=== PATIENT | male | born 1945 | race African-American/Black ===

== ENCOUNTER 2023-08-05 02:36 | Emergency (ER) | payer OTHER, MEDICAID ==
[~2023-08-05] VITALS: Ht 188 cm; Wt 78.0 kg
[~2023-08-05 02:36] MED LIST: ASPI-1073 PO; CLON0.3T PO
[2023-08-05] MEDS ORDERED: ONDANSETRON HCL 4MG/2ML INJ IV STA (03:01)
[2023-08-05] MEDS ORDERED: PIPERACILLIN/TAZO 3.375G/50ML 50 ML IV ONE (03:15)
[2023-08-05] MEDS ORDERED: VANCOMYCIN 1G PREMIX 200 ML IV ONE (03:15)
[2023-08-05] MEDS ORDERED: SODIUM CHLORIDE 0.9% 1000ML BAG (SEPSIS BOLUS) IV ONE (03:15)
[2023-08-05 03:45] LABS: BASOPHILS % 1.1 % (0.0-2.0); DIFFERENTIAL COMMENT 0; EOSINOPHILS % 0.4 % (0.0-5.0); HEMATOCRIT. 39.8 % (42.0-52.0); MEAN CORPUSCULAR HEMOGLOBIN 29.3 pg (28.0-32.0); MEAN CORPUSCULAR HGB CONC 32.7 g/dL (31.0-37.0); MEAN CORPUSCULAR VOLUME 89.5 fL (80.0-94.0); MEAN PLATELET VOLUME 11.6 fl (7.4-10.4); MONOCYTES % 8.5 % (2.0-8.0); PLATELET 204 x1000/uL (130-400); RED BLOOD CELL COUNT 4.45 mill/uL (4.7-6.1); RED CELL DISTRIBUTION WIDTH 14.2 % (11.6-14.6); WHITE BLOOD COUNT 6.3 x1000/uL (4.5-11.0)
[2023-08-05 03:52] VITALS: PULSE 87; RESP 18
[2023-08-05 03:57] LABS: ALANINE AMINOTRANSFERASE 39 IU/L (10-49); ALBUMIN 3.5 g/dL (3.2-4.8); ASPARTATE AMINOTRANSFERASE 33 IU/L (<34); BILIRUBIN TOTAL 0.4 mg/dL (0.1-1.0); CARBON DIOXIDE 25 mEq/L (21-32); CHLORIDE 103 mEq/L (98-107); CREATININE 1.9 mg/dL (0.6-1.3); POTASSIUM 3.9 mEq/L (3.5-5.1); PROTEIN TOTAL 7.1 g/dL (6.0-8.3); SODIUM 135 mEq/L (136-145); UREA NITROGEN BLOOD 35 mg/dL (9-23)
[2023-08-05] MEDS ORDERED: PROPOFOL 10MG/ML 100ML 100 ML IV ONE (04:00)
[2023-08-05 04:11] LABS: GLUCOSE 597 mg/dL (70-105); TROPONIN I HIGH SENSITIVITY 247 ng/L (3.0-53)
[2023-08-05 04:15] LABS: BG CARBOXYHEMOGLOBIN 0.3 % (0.5-1.5); BG DEOXYHEMOGLOBIN 1.8 % (0.0-5.0); BG FRACTION INSPIRED OXYGEN 35; BG HCO3 ACT 21.7 mmol/L (22.0-26.0); BG METHEMOGLOBIN 0.2 % (0.0-1.5); BG OXYGEN SATURATION 98.2 % (92.0-98.5); BG OXYHEMOGLOBIN 97.7 % (94.0-97.0); BG PCO2 30.4 mmHg (35.0-45.0); BG PH 7.471 (7.350-7.450); BG PO2 126.8 mmHg (75.0-100.0); BG SAMPLE SITE RIGHT RADIAL; BG TOTAL HEMOGLOBIN 12.8 g/dL (12.0-18.0); BG VENT MODE VENT - AC
[2023-08-05 04:23] VITALS: O2SAT 100
[2023-08-05 04:26] LABS: PROTHROMBIN TIME 10.6 sec (9.6-11.0)
[2023-08-05] MEDS ORDERED: IOHEXOL-350 100 ML BOTTLE ONE (04:37)
[2023-08-05] MEDS ORDERED: INSULIN REGULAR (HUMULIN R) 300UNITS/3ML VIAL SUBCUT ONE (05:30)
[2023-08-05 05:57] VITALS: BP 168/94; PULSE 73; RESP 18; TEMP 97
[2023-08-05 06:37] LABS: TROPONIN I HIGH SENSITIVITY 187 ng/L (3.0-53)
[2023-08-05 07:02] LABS: CLARITY URINE CLEAR (CLEAR); COLOR URINE YELLOW (YELLOW); GLUCOSE URINE 3+ (NEGATIVE); KETONES URINE NEGATIVE (NEGATIVE); NITRITE URINE NEGATIVE (NEGATIVE); OCCULT BLOOD URINE 1+ (NEGATIVE); PH URINE 6.5 (4.5-8.0); PROTEIN URINE 3+ (NEGATIVE)
[2023-08-05 07:03] LABS: LEUKOCYTE ESTERASE URINE NEGATIVE (NEGATIVE); UROBILINOGEN URINE 0.2 E.U./dL (0.2-1.0)
[2023-08-05 09:03] LABS: RBC URINE 0-2 /hpf (0-2); SQUAMOUS EPITHELIAL CELL URINE NONE SEEN /lpf (RARE/1+); WBC URINE 0-2 /hpf (0-2)
[2023-08-05 09:04] LABS: BACTERIA URINE FEW
[2023-08-05 12:21] LABS: BETA HYDROXYBUTYRATE 0.5 mMol/L (0.0-0.3)
== END 2023-08-05 06:25 | disposition short-term general hospital (02) ==
LOC: ER 02:36
DX: I63.9 Cerebral infarction, unspecified (principal); E11.9 Type 2 diabetes mellitus without complications; I10 Essential (primary) hypertension; F03.90 Unspecified dementia, unspecified severity, without behavioral disturbance, psychotic disturbance, mood disturbance, and anxiety
CPT/HCPCS: 99291; 70496; 31500 ×2; 96365; 71045; 96367; 80053; 81003; 82010; 82962; 83605; 83690; 83735; 85025; 85610; 87040; 84484; 36415; 84145; 70498; 82805; 82375; 70450; 93005; 36600; Q9967; J2543; J2704; J3370; J7030; J1815; 94002; 96372